=== PATIENT | male | born 1955 | race Caucasian/White ===

== ENCOUNTER → 2016-07-04 | Outpatient (CLI) | payer OTHER ==
--- NOTE | 2016-07-04 12:47 | DX ---
PA and Lateral Chest July 04, 2016 Indication: Fell 2 weeks ago. Left-sided rib pain. Findings: Nondisplaced anterior left 7th and 8th rib fractures are best characterized on left rib ser ies reported separately. The 8th rib fracture is evident in the PA view overlying the interface with the diaphragm. No pneumothorax or effusion. Minimal left basilar atelectasis is accompanied by diffus e peribronchial thickening. Heart size is normal. Impression: 1. Acute nondisplaced anterior left 7th and 8th rib fractures. 2. Minimal left basilar atelectasis. No effusion or pneumothorax.
--- NOTE | 2016-07-04 12:55 | DX ---
Left Rib Series-3 Views dated July 04, 2016 Indication: Fall. Left-sided pain. Technique: PA and 2 oblique views of the left hemithorax with a BB placed over the site of pain. Findings: Anterior nondisplaced fractures course through the left 7th and 8th ribs. No healing callus . No pneumothorax. Minimal left basilar atelectasis. Impression: Nondisplaced anterior left 7th and 8th rib fractures.
== END ==
LOC: FIMAGING 11:36
PROVIDERS: ATTEND Internal Medicine
DX: S22.41XA Multiple fractures of ribs, right side, initial encounter for closed fracture (principal); W19.XXXA Unspecified fall, initial encounter

== ENCOUNTER → 2016-11-01 | Outpatient (CLI) | payer OTHER ==
[~2016-11-01] MED LIST: GADOBUTROL 10 ML VIAL IVP ONE
== END ==
LOC: FIMAGING 12:06
PROVIDERS: ATTEND Ophthalmology
DX: H54.7 Unspecified visual loss (principal); R94.02 Abnormal brain scan
CPT/HCPCS: A9585